=== PATIENT | male | born 2000 | race Caucasian/White ===

== ENCOUNTER 2024-06-17 22:12 | Emergency (ER) | payer MEDICAID ==
[~2024-06-17] VITALS: Ht 175.3 cm; Wt 79.4 kg
[2024-06-17 22:52] VITALS: BP 121/47; PULSE 51; RESP 18; TEMP 98.4; O2SAT 100
[2024-06-17] MEDS ORDERED: FAMO-92 PO (23:18)
[2024-06-17] MEDS: FAMOTIDINE 20 MG TAB PO ONE (23:29)
== END 2024-06-17 23:34 | disposition home or self-care (01) ==
LOC: MED 22:12
DX: K29.70 Gastritis, unspecified, without bleeding (principal)
CPT/HCPCS: 99282; 99283